=== PATIENT | female | born 1995 | race Caucasian/White ===

== ENCOUNTER 2017-03-11 00:13 | Emergency (ER) | payer MEDICAID, OTHER ==
[~2017-03-11] VITALS: Ht 152.4 cm; Wt 53.4 kg
[~2017-03-11 00:13] MED LIST: Z.0.NO CURRENT MEDS
[2017-03-11 00:18] VITALS: BP 118/73; PULSE 97; RESP 18; TEMP 98.6; O2SAT 97
[2017-03-11] MEDS ORDERED: METHY5 PO (00:33)
[2017-03-11] MEDS ORDERED: ADDE20 PO (00:33)
--- NOTE | 2017-03-11 01:15 | PD ---
HPI Chief Complaint: Cold / Flu Symptoms Time Seen by Provider: 01:11 Travel History International Travel<30 days: No Contact w/Intl Traveler<30days: No Traveled to known affect area: No History of Present Illness HPI 21 year-old female presents to the emergency department by private transportation for 2 days of sinus pressure drainage sore throat and subjective fever. No myalgias or arthralgias. Nonproductive cough. Denies . No chest pain no shortness of breath no flank pain no dysuria frequency urgency she has had nausea without vomiting abdominal pain or diarrhea. No skin rash or joint pain or swelling. Patient has been exposed to 2 friends with the same symptoms. Patient has been using [id number] Advil and dull some for cold symptoms. PFSH Past Medical History Narrative Medical ADD IUD occasional alcohol use nursing notes reviewed ADD: Yes ADHD: No Cancer: No Diabetes: No Diminished Hearing: No Psychiatric: No Immunizations Current: Yes Migraines: No Seizures: No Thyroid Disease: No Ulcer: No Tetanus Vaccination: < 5 Years Influenza Vaccination: Yes ?: Not LMP: IUD : 0 Past Surgical History Surgical History: No Previous Surgery Appendectomy: No Body Medical Devices: IUD Cholecystectomy: No Social History Alcohol Use: Yes (occasional) Tobacco Use: No Substance Use: No Allergies-Medications (Allergen,Severity, Reaction): Coded Allergies: amoxicillin (Verified Allergy, Severe, Diarrhea, 03/11/17) latex (Verified Allergy, Severe, Itching, 03/11/17) Reported Meds & Prescriptions Reported Meds & Active Scripts Active Reported Ritalin IR (Methylphenidate HCl) 5 Mg Tab 5 Mg PO DAILY Adderall (Amphetamine-Dextroamphetamine) 20 Mg Tab 20 Mg PO DAILY Avoid late evening doses. Space doses at least 4 to 6 hours if more than once/day dosing. Review of Systems Except as stated in HPI: all other systems reviewed are Neg General / Constitutional: Positive: Fever (subjective), No: Chills HENT: Positive: Headaches, Sore Throat, Congestion, No: Neck Stiffness Cardiovascular: No: Chest Pain or Discomfort Respiratory: Positive: Cough, No: Shortness of Breath, Wheezing Gastrointestinal: Positive: Nausea, No: Vomiting, Diarrhea, Abdominal Pain Genitourinary: No: Dysuria, Flank Pain Musculoskeletal: No: Myalgias, Arthralgias Skin: No Rash Neurologic: No: Weakness Psychiatric: No: Anxiety Hematologic/Lymphatic: No: Lymph Node Enlargement Physical Exam Narrative GENERAL: Well-developed well-nourished female in no acute distress no respiratory distress; afebrile room air O2 saturation 97% SKIN: Warm and dry. HEAD: Normocephalic. EYES: No scleral icterus. No injection or drainage. ENT: Mucous membranes moist airway is patent posterior pharyngeal drainage is noted; tympanic membrane no redness dullness loss of landmarks or perforation. NECK: Supple, trachea midline. No JVD or lymphadenopathy. No meningismus no nuchal rigidity. CARDIOVASCULAR: Regular rate and rhythm without murmurs, gallops, or rubs. RESPIRATORY: Breath sounds equal bilaterally. No accessory muscle use. GASTROINTESTINAL: Abdomen soft, non-tender, nondistended. MUSCULOSKELETAL: No cyanosis, or edema. BACK: Nontender without obvious deformity. No CVA tenderness. Data Data Last Documented VS Vital Signs Date Time Temp Pulse Resp B/P Pulse Ox O2 Delivery O2 Flow Rate FiO2 03/11/17 00:37 Room Air 03/11/17 00:18 98.6 97 18 118/73 97 Orders Group A Rapid Strep Screen (03/11/17 01:11) Strep Culture (Group A) (03/11/17 01:15) MDM Medical Decision Making Medical Screen Exam Complete: Yes Emergency Medical Condition: Yes Medical Record Reviewed: Yes Interpretation(s) RSA: negative Differential Diagnosis Upper respiratory infection, viral syndrome, acute sinusitis, pharyngitis, mononucleosis; also to consider influenza Narrative Course Rapid strep antigen specimen collected Rapid strep test negative; patient symptoms were consistent with acute sinusitis as pressure increases with leaning forward and feels pressure over the maxillary sinuses. Patient is stable for outpatient management and follow-up with her primary care provider. Diagnosis Primary Impression: Upper respiratory infection Qualified Code: J06.9 - Upper respiratory tract infection, unspecified type Additional Impression: Sinusitis Qualified Code: J32.9 - Sinusitis, unspecified chronicity, unspecified location Referrals: Primary Care Physician call for appointment Patient Instructions: General Instructions Departure Forms: School Release, Please excuse from school until (free text option): no school x 1 day Tests/Procedures, Work Release Special Instructions: no work x 1 day Additional Instructions: Increase fluid hydration Follow-up with primary care provider No work or school times one day May use Afrin nasal decongestant spray 1 spray to each nostril twice daily for up to 3 days to avoid rebound congestion May take acetaminophen/Tylenol every 4 hours for fever 100.4F or greater and/ or ibuprofen/Advil/Motrin every 6-8 hours as needed for fever 100.4F or greater or for discomfort associated with inflammation Return to the emergency department for any concerns or change in condition Med/Other Pt SpecificInfo: Prescription(s) given Scripts Azithromycin (Zithromax Tri-[place])500 Mg [id number] Mg PO DAILY #1 DSPK Ref 0 Prov:Marilou White MD 03/11/17 Disposition: 01 DISCHARGE HOME Condition: Stable Marilou White MD Mar 11, 2017 01:15
[2017-03-11] MEDS ORDERED: ZITHTAB2 PO (01:38)
== END 2017-03-11 01:50 | disposition home or self-care (01) ==
LOC: PHED 00:13
DX: J06.9 Acute upper respiratory infection, unspecified (principal); J32.9 Chronic sinusitis, unspecified; R11.0 Nausea; Z86.59 Personal history of other mental and behavioral disorders
CPT/HCPCS: 87081; 87880; 99283